=== PATIENT | female | born 1970 | race Caucasian/White ===

== ENCOUNTER → 2023-08-29 17:16 | Outpatient (REF) | payer BC, SELFPAY | LOC: PAVMRI 17:16 | PROVIDERS: ATTENDING PHYSICIAN Anesthesiology; FAMILY PHYSICIAN Family Medicine | DX: M54.50 Low back pain, unspecified (principal); M51.26 Other intervertebral disc displacement, lumbar region; M54.16 Radiculopathy, lumbar region | CPT/HCPCS: 72148 ==

== ENCOUNTER → 2024-05-25 12:52 | Outpatient (REF) | payer BC, SELFPAY | LOC: RCS 12:52 | PROVIDERS: ATTENDING PHYSICIAN Family Medicine | DX: R94.31 Abnormal electrocardiogram [ECG] [EKG] (principal); E78.00 Pure hypercholesterolemia, unspecified; Z82.49 Family history of ischemic heart disease and other diseases of the circulatory system | CPT/HCPCS: 93306 ==

== ENCOUNTER → 2025-02-02 10:45 | Outpatient (REF) | payer BC, SELFPAY | LOC: RAD 10:45 | PROVIDERS: ATTENDING PHYSICIAN Chiropractor; FAMILY PHYSICIAN Family Medicine | DX: M99.05 Segmental and somatic dysfunction of pelvic region (principal); M54.51 Vertebrogenic low back pain | CPT/HCPCS: 72170 ==